=== PATIENT | male | born 2000 | race Caucasian/White ===

== ENCOUNTER 2023-10-30 10:34 | Outpatient (AMB) | payer OTHER, SELFPAY ==
--- NOTE | 2023-10-30 10:54 | MHC.PC.OV ---
Vital Signs 10/30/23 11:01 Height 5 ft 11.5 in Weight 214 lb BMI 29.4 BP 130/82 Blood Pressure Location Rt brachial Position Sitting Respiration 12 Pulse 64 Pulse Source Pulse Oximeter Pulse Oximetry (%) 99 Oxygen Delivery Method Room Air Intake Visit Reasons: est care Intake Note: Patient is here to establish care, patient reports no concerns at this time. 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 Accompanied by: Self / Same As Patient Allergies amoxicillin [AMOXICILLIN] Allergy (Unknown, Verified 10/30/23 11:06) SWELLING, hives penicillin G Allergy (Unknown, Verified 10/30/23 11:06) hives Penicillins [PENICILLINS] Allergy (Unknown, Verified 10/30/23 11:06) SWELLING Medication List - Last Reconciled 10/30/23 by Leora Hutchins MD No Known Home Meds Tobacco use date assessed: 10/30/23 Dental Screening Dental Screen Date: 10/30/23 Did you have a dental visit in the last 12 months?: Yes Did you have a dental problem in the last 6 months where you did not have access to dental care?: No Was dental information given to patient?: Patient has dentist HPI HPI Comments History of Present Illness Details The patient is a 23-year-old female with no significant past medical history presenting to establish care The patient is starting at the [facility]. He denies any history of heart problems, chest pain, shortness of breath. He reports that he has developed a cyst in the gluteal cleft. He says this has not happened to him in the past. He is discomfort when there is pressure against the area. He has been applying warm compresses. He denies any accident. ROS see HPI PHYSICAL EXAM: GENERAL: Alert and oriented x 3. NAD EYES: EOMI. Anicteric. HENT: Moist mucous membranes. No scleral icterus. No cervical lymphadenopathy. LUNGS: Clear to auscultation bilaterally. CARDIOVASCULAR: Regular rate and rhythm. No murmur. No JVD. ABDOMEN: Soft, non-tender +bs EXTREMITIES: No edema. Non-tender. SKIN: Large pilonidal cyst without purulence NEUROLOGIC: No focal neurological deficits. CN II-XII grossly intact PSYCHIATRIC: Cooperative. Appropriate mood and affect [facility] Medical History No pertinent past medical history Surgical History No pertinent past surgical history Family History Mother Pancreatic cancer Maternal Grandmother Pancreatic cancer Maternal Grandfather Pancreatic cancer Social History Household Members: Significant Other Household Members Other:: 2 cats Housing: Apartment Are you a primary field care manager to a significant other at home: No Do you presently have visiting nurse or other home services: No 75 years or older and lives alone: No Alcohol intake: current Alcohol intake frequency: a few times a month Alcohol type: hard liquor Patient Tobacco Use Status: Never used Tobacco e-Cigarette/Vaping Use: Currently Using service: No Current occupational status: employed 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 1. Little interest or pleasure in doing things: nearly every day 2. Feeling down, depressed, or hopeless: several days 3. Trouble falling or staying asleep, or sleeping too much: nearly every day 4. Feeling tired or having little energy: several days 5. Poor appetite or overeating: not at all 6. Feeling bad about yourself - or that you are a failure or have let yourself or your family down: several days 7. Trouble concentrating on things, such as reading the newspaper or watching television: more than half the days 8. Moving or speaking so slowly that other people could have noticed. Or the opposite - being so fidgety or restless that you have been moving around a lot more than usual: more than half the days 9. Thoughts that you would be better off or of hurting yourself in some way: not at all Total score: 13 Depression Screening Interpretation: Positive Depression Screening Follow-up: Existing condition and Declines treatment Depression Screening Done: Yes 79809 - PHQ-9 Billing: Yes Source: Developed by Drs. Tavon Randall, Meena Barrientos, Yahir Doll and colleagues, with an educational guerita from [employer]. Thrive Questionnaire Date Thrive assessed: 10/30/23 I am a: Patient What is your living situation today?: I have a steady place to live Within the past 12 months, did the food you bought not last and you didn't have the money to get more?: Never true Within the past 12 months, did you worry whether your food would run out before you got money to buy more?: Never true Do you have trouble paying for medicines?: No Do you have trouble getting transportation to medical appointments?: No Do you have trouble paying your heating and electricity bill?: No Do you have trouble taking care of your child, family member or friend?: No Do you have trouble with day-to-day activities such as bathing, preparing meals, shopping, managing finances, etc.?: No Are you currently unemployed and looking for a job?: No Are you interested in more education?: No Please select the resources that you would like help with: None Currently or been in a relationship where the following occur: No concerns reported THRIVE Score: 0 AUDIT C Alcohol Use Questionnaire (AUDIT-C) 1. How often do you have a drink containing alcohol?: Monthly or less 2. How many drinks containing alcohol do you have on a typical day when you are drinking?: 1 or 2 3. How often do you have six or more drinks on one occasion?: Never Total Score: 1 ELIOT-7 AMB Questionnaire ELIOT-7 Date ELIOT - 7 assessed: 10/30/23 Feeling nervous, anxious, or on edge: 2 = More than half the days Not being able to stop or control worryin = Not at all Worrying too much about different things: 2 = More than half the days Trouble relaxin = More than half the days Being so restless that it is hard to sit still: 0 = Not at all Becoming easily annoyed or irritable: 2 = More than half the days Feeling afraid as if something awful might happen: 3 = Nearly every day Total ELIOT-7 score (0-4 normal; 5-9 mild; 10-14 moderate; 15-21 severe): 11 Source: Developed by Drs. Tavon Randall, Meena Barrientos, Yahir Doll and colleagues, with an educational guerita from [employer]. ELIOT-7 Assessment Billing ELIOT-7 Assessment Tool: ELIOT-7 Assessment 02686 Physical exam (Primary Care) Vital Signs: Last Vital Signs Pulse 64 10/30/23 11:01 Resp 12 10/30/23 11:01 BP 130/82 10/30/23 11:01 Pulse Ox 99 10/30/23 11:01 Oxygen Delivery Method Room Air 10/30/23 11:01 BMI result Body Mass Index 29.4 Tobacco/Smoking Status: Tobacco use Status Tobacco use date assessed 10/30/23 10/30/23 11:17 Patient Tobacco Use Status Never used Tobacco 10/30/23 11:17 e-Cigarette/Vaping Use Currently Using 10/30/23 11:17 PHQ-9: PHQ-9 Score PHQ-9: Total score 13 10/30/23 11:17 Depression Screening Interpretation: Positive Depression Screening Follow-up: Existing condition and Declines treatment Thrive Assessment: Date of Thrive Assessment Date Thrive assessed 10/30/23 10/30/23 11:17 Currently or been in a relationship where the following occur: No concerns reported Assessment and Plan Assessment & Plan (1) Pilonidal cyst: Code(s): L05. - Pilonidal cyst without abscess Plan: referral to general surgery (2) Encounter to establish care: Code(s): Z76.89 - Persons encountering health services in other specified circumstances Plan: 23-year-old male to establish care. Past Medical, surgical, social and family history reviewed. Orders: Referrals General Surgery Referral L - Pilonidal cyst without abscess Coding Level of Care Code New Pt Level 4 (28497) Diagnoses Pilonidal cyst L. Encounter to establish care Z76.89 Additional Codes ELIOT-7 Assessment Billing - ELIOT-7 Assessment Tool: ELIOT-7 Assessment 54865 ([id number])
[2023-10-30 11:01] VITALS: BP 130/82; PULSE 64; RESP 12; O2SAT 99; BMI 29.4
== END 2023-10-30 11:27 | disposition home or self-care (01) ==
PROVIDERS: PCP Internal Medicine; Visit Provider Internal Medicine
DX: L05.91 Pilonidal cyst without abscess (principal); Z76.89 Persons encountering health services in other specified circumstances
CPT/HCPCS: 99203

== ENCOUNTER 2023-11-02 12:40 | Outpatient (AMB) | payer OTHER, SELFPAY ==
--- NOTE | 2023-11-02 12:50 | MHC.OFFVIS ---
Vital Signs 11/02/23 12:57 Height 5 ft 5.11 in Weight 217 lb BMI 36.0 BP 135/78 Blood Pressure Location Rt brachial Position Sitting Pulse 72 Intake Visit Reasons: Pilonidal cyst Intake Note: Patient referred for pilonidal cyst. X2wks Patient c/o: feels better since it drained. 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 He this is a 2nd episode of a pilonidal abscess which has spontaneously drained. He presents here for further evaluation. He would like to have this excised. Patient presents here with a significant other. Chart was reviewed and patient evaluated. No other significant past medical or surgical history. Patient was never had I&D of this in the past [facility] Medical History No pertinent past medical history Surgical History No pertinent past surgical history Family History Mother Pancreatic cancer Maternal Grandmother Pancreatic cancer Maternal Grandfather Pancreatic cancer Social History (Updated 11/02/23 @ 12:57 by MACY Garcia) Household Members: Significant Other Household Members Other:: 2 cats Housing: Apartment Are you a primary personal care aid to a significant other at home: No Do you presently have visiting nurse or other home services: No 75 years or older and lives alone: No Alcohol intake: current Alcohol intake frequency: a few times a month Alcohol type: hard liquor Patient Tobacco Use Status: Never used Tobacco Tobacco use type: Smokeless Tobacco e-Cigarette/Vaping Use: Currently Using service: No Current occupational status: employed 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 Some mild surrounding erythema. On expression, only serous drainage retrieved. Dressing applied. Assessment & Plan Assessment & Plan (1) Infected pilonidal cyst: Code(s): L05.91 - Pilonidal cyst without abscess Category: Medical Plan Current plan is to give the patient antibiotics and to continue local wound care. He will see me in the proximal weeks time. Once the infective process has resolved, consideration was made for excision of this. All questions answered. Patient will see me as directed or p.r.n. Medications: New ciprofloxacin HCl 500 mg PO BID 14 tabs 0RF Perirectal abscess K61.1 - Rectal abscess Coding Level of Care Code New Pt Level 4 (94910) Diagnoses Infected pilonidal cyst L05.91
[2023-11-02 12:57] VITALS: BP 135/78; PULSE 72; BMI 36.0
== END 2023-11-02 13:19 | disposition home or self-care (01) ==
PROVIDERS: PCP Internal Medicine; Referring Provider Internal Medicine; Visit Provider Surgery
DX: L05.91 Pilonidal cyst without abscess (principal)
CPT/HCPCS: 99204

== ENCOUNTER → 2023-11-02 12:40 | Outpatient (BNVA) | payer OTHER, SELFPAY | PROVIDERS: PCP Internal Medicine; Referring Provider Internal Medicine; Visit Provider Surgery | DX: L05.91 Pilonidal cyst without abscess (principal); L53.9 Erythematous condition, unspecified | CPT/HCPCS: 99202 ==

== ENCOUNTER 2023-11-16 14:22 | Outpatient (AMB) | payer OTHER, SELFPAY ==
--- NOTE | 2023-11-16 14:44 | A.OFFVIS_ITS ---
Intake Visit Reasons: follow up pilonidal cyst Allergies amoxicillin [AMOXICILLIN] Allergy (Unknown, Verified 11/02/23 12:56) SWELLING, hives penicillin G Allergy (Unknown, Verified 11/02/23 12:56) hives Penicillins [PENICILLINS] Allergy (Unknown, Verified 11/02/23 12:56) SWELLING HPI Comments Details: Patient presents for follow-up status post infected pilonidal cyst. He completed his antibiotic course. He has had marked improvement of the symptoms. [facility] Medical History No pertinent past medical history Surgical History No pertinent past surgical history Family History Mother Pancreatic cancer Maternal Grandmother Pancreatic cancer Maternal Grandfather Pancreatic cancer Social History (Updated 11/02/23 @ 12:57 by MACY Garcia) Household Members: Significant Other Household Members Other:: 2 cats Housing: Apartment Are you a primary home care specialist to a significant other at home: No Do you presently have visiting nurse or other home services: No 75 years or older and lives alone: No Alcohol intake: current Alcohol intake frequency: a few times a month Alcohol type: hard liquor Patient Tobacco Use Status: Never used Tobacco Tobacco use type: Smokeless Tobacco e-Cigarette/Vaping Use: Currently Using service: No Current occupational status: employed 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 Assessment & Plan Assessment & Plan (1) Infected pilonidal cyst: Code(s): L05.91 - Pilonidal cyst without abscess Category: Surgical Plan I discussed with the patient therapeutic options which range from conservative therapy and observation to excision. He wishes to off with the former. Should his symptoms progressively worsened during this interim, he will contact me . Patient will otherwise follow-up p.r.n.. All questions answered Coding Level of Care Code Est Pt Level 3 (77768) Diagnoses Infected pilonidal cyst L05
== END 2023-11-16 14:44 | disposition home or self-care (01) ==
PROVIDERS: PCP Internal Medicine; Visit Provider Surgery
DX: L05.91 Pilonidal cyst without abscess (principal)
CPT/HCPCS: 99213

== ENCOUNTER → 2023-11-16 14:22 | Outpatient (BNVA) | payer OTHER, SELFPAY | PROVIDERS: PCP Internal Medicine; Visit Provider Surgery | DX: L05.91 Pilonidal cyst without abscess (principal) | CPT/HCPCS: 99212 ==

== ENCOUNTER 2024-01-22 12:01 | Day surgery (SDC) | payer OTHER, SELFPAY ==
--- NOTE | 2024-01-20 12:53 | HO.ANESPROP2 ---
HPI - Anesthesia Eval Consult details Narrative: 23yo M for Wide Local Excision Pilonidal Cyst of Cleft, PMFSH Active Problems Active Problems: All Active Problems Infected pilonidal cyst (Acute) Encounter to establish care (Acute) Pilonidal cyst (Acute) Tracheobronchitis (Acute) Past Medical History Medical History No pertinent past medical history Family History Family History Mother Pancreatic cancer Maternal Grandmother Pancreatic cancer Maternal Grandfather Pancreatic cancer Surgical History Surgical History No pertinent past surgical history Social History Social History Household Members: Significant Other Household Members Other:: 2 cats Housing: Apartment Are you a primary respiratory care specialist to a significant other at home: No Do you presently have visiting nurse or other home services: No 75 years or older and lives alone: No Alcohol intake: current Alcohol intake frequency: a few times a month Alcohol type: hard liquor Patient Tobacco Use Status: Current everyday Tobacco user Tobacco use type: Smokeless Tobacco e-Cigarette/Vaping Use: Currently Using service: No Current occupational status: employed 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
--- NOTE | 2024-01-21 16:03 | MHC.SHP ---
Pre-Procedural Eval Section A - 24 Hr Update-Section A only Date of Service: 01/22/24 The patient is an INPATIENT: No Changes since office visit: No Cold of Flu in the past 2 weeks, No New Medical Problems, No Changes in Medication and No Patient answered all questions Section B - Complete if H&P > 30 days Chief Complaint: Pilonidal cyst without abscess Allergies: Allergies Allergy/AdvReac Type Severity Reaction Status Date / Time amoxicillin [AMOXICILLIN] Allergy Unknown SWELLING, Verified 11/02/23 12:56 hives penicillin G Allergy Unknown hives Verified 11/02/23 12:56 Penicillins [PENICILLINS] Allergy Unknown SWELLING Verified 11/02/23 12:56 Review of Systems Sugical H&P ROS: Negative: Constitution, Cardiovascular, Respiratory, Neurological, Psychiatric, Hem-Onc, Allergic/Immunologic, Gastrointestinal, Genitourinary, Musculoskeletal, Integumentary, Endocrine and Eyes/Ears/Nose/Throat Exam Surgical H&P Exam: Normal: HEENT, Normal: Heart, Normal: Lungs, Normal: Extremities, Normal: Abdomen, Normal: Skin and Normal: Neurological Plan I have reviewed the history and physical and performed a pertinent physical examination on my patient. No changes have occurred unless specified. Time Spent With Patient Time: Total time managing care of this patient today ____ minutes.
[2024-01-22 13:45] VITALS: BMI 32.9
[2024-01-22 13:47] VITALS: BP 143/93; PULSE 77; RESP 16; TEMP 36.6; O2SAT 100
[2024-01-22] MEDS: Lactated Ringers 1,000 ML 100 ML IVCONT (14:24)
--- NOTE | 2024-01-22 16:28 | HO.ANESPROP2 ---
[facility] Active Problems Active Problems: All Active Problems Infected pilonidal cyst (Acute) Encounter to establish care (Acute) Pilonidal cyst (Acute) Tracheobronchitis (Acute) Past Medical History Medical History No pertinent past medical history Functional capacity: independent ambulation Family History Family History Mother Pancreatic cancer Maternal Grandmother Pancreatic cancer Maternal Grandfather Pancreatic cancer Family history of problems with anesthesia: No Surgical History Surgical History No pertinent past surgical history History of Problems with Anesthesia: No Social History Social History Household Members: Significant Other Household Members Other:: 2 cats Housing: Apartment Are you a primary rn complex care to a significant other at home: No Do you presently have visiting nurse or other home services: No Alcohol intake: current Alcohol intake frequency: a few times a month Alcohol type: hard liquor Patient Tobacco Use Status: Current everyday Tobacco user Tobacco use type: Smokeless Tobacco e-Cigarette/Vaping Use: Currently Using Use of substances other than those prescribed or required for medical reasons: No Are you DNR?: No Advance Directives: No Advance Directives Information Provided: Yes service: No Current occupational status: employed 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[place] Cognitive needs: No Hearing needs: No Vision needs: Yes (wears glasses) Meds Allergies Allergy/AdvReac Type Severity Reaction Status Date / Time amoxicillin [AMOXICILLIN] Allergy Unknown SWELLING, Verified 01/22/24 14:32 hives penicillin G Allergy Unknown hives Verified 01/22/24 14:32 Penicillins [PENICILLINS] Allergy Unknown SWELLING Verified 01/22/24 14:32 Active Medications: Current Medications Lactated Ringer's (Lr) 1,000 mls @ 100 mls/hr IVCONT .Q10H ORTEGA Last Admin: 01/22/24 14:24 Dose: 100 mls/hr Exam Height,Weight and Vital Signs: Height 5 ft 11 in Weight 107.048 kg Last Vital Signs Temp 97.9 F 01/22/24 13:47 Pulse 77 01/22/24 13:47 Resp 16 01/22/24 13:47 BP 143/93 H 01/22/24 13:47 Pulse Ox 100 01/22/24 13:47 O2 Del Method Room Air 01/22/24 13:47 Airway Mallampati Class: II TM Dist: >3cm Neck ROM: Full Heart: RRRR Lungs: CTA Assessment and Plan Assessment Anesthesia Assessment: Anesthesia Plan Discussed, Smoking Cess. Discussed and Chart Reviewed Final Anesthetic Review Family History of Problems with Anesthesia: No History of Problems with Anesthesia: No NPO: Yes ASA Class: II and Emergency Final Preanesthetic Review: Meds/Allgs Chart Reviewed, Consent Obtained/Reviewed and Anes Risks/Benef Reviewed Patient Risk: Low Procedure Risk: Low Anesthetic Plan Anesthetic Plan: GA Disposition: Standard PACU
[2024-01-22 17:05] VITALS: BP 150/79; PULSE 89; RESP 16; TEMP 36.4; O2SAT 100
--- NOTE | 2024-01-22 17:06 | W.PM.OPN ---
Operative Note Operative Note Date of Service: 01/22/24 Narrative: Preoperative diagnosis: [] Recurrent symptomatic pilonidal cyst of cleft Postop diagnosis: [] The same Procedure [] pilonidal cyst excision and jose cleft Surgeon: [] Yaakov Substance Abuse Clinician: [] Type of Anesthesia: [] General Indication for surgery: [] Uneventful pilonidal cyst excision of cleft Findings: [] Patient was brought to the operating room, placed on operative table supine position, after an adequate level of general anesthesia was induced, patient was placed in the prone kasey-knife position. Buttock cheeks were retracted using tape and the jose cleft area was prepped and draped in usual sterile fashion. Using a longitudinal by elliptical incision encompassing the sinus tracts and indurated prior incision and drainage scars, this carried down through skin, subcutaneous tissue, and undermined using Bovie. Specimen sent to pathology. Wound was irrigated, secured hemostasis, and closed in the following manner; subcutaneous tissue to wound base to contralateral subcutaneous tissue interrupted 0 Vicryl sutures were initially placed. Dermal interrupted 2-0 Vicryl sutures were then placed. Next vertical mattress 2-0 Prolene sutures were placed. Dressing and ABD pad applied. Wound was infiltrated at the beginning at the end with 1% lidocaine/0.5% Marcaine. Sponge, needle, and instrument counts reported correct. Patient tolerated procedure well and emerged from anesthesia stable condition. EBL minimal
[2024-01-22 17:10] VITALS: BP 123/87; PULSE 92; RESP 16; O2SAT 99
[2024-01-22 17:15] VITALS: BP 142/96; PULSE 92; RESP 16; O2SAT 100
[2024-01-22 17:20] VITALS: BP 148/84; PULSE 91; RESP 18; TEMP 36.8; O2SAT 100
== END 2024-01-22 17:24 | disposition home or self-care (01) ==
PROVIDERS: PCP Internal Medicine; Visit Provider Surgery
PROC: (CPT 11771; principal; 2024-01-22 17:10)
DX: L05.91 Pilonidal cyst without abscess (principal); Z88.0 Allergy status to penicillin; Z88.1 Allergy status to other antibiotic agents; F17.290 Nicotine dependence, other tobacco product, uncomplicated
CPT/HCPCS: 11771; 88304; J0736; J1100; J1885; J2003; J2250; J2405; J2704; J2795; J3010

== ENCOUNTER → 2024-01-22 12:01 | Outpatient (BNV) | payer OTHER, SELFPAY | PROVIDERS: PCP Internal Medicine; Visit Provider Surgery | DX: L05.91 Pilonidal cyst without abscess (principal) | CPT/HCPCS: 11771 ==

== ENCOUNTER 2024-02-01 14:12 | Outpatient (AMB) | payer OTHER, SELFPAY ==
--- NOTE | 2024-02-01 14:16 | A.OFFVIS_ITS ---
Vital Signs 02/01/24 14:17 Weight 242 lb BP 136/72 Blood Pressure Location Rt brachial Position Sitting Pulse 83 Intake Visit Reasons: s/p pilonidal cyst Intake Note: Patient here s/p excision pilonidal cyst on 01-22-2024. Reports incision healing well. Patient c/o: requesting back to work note. Denies pain, oozing. 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 He is doing quite well. He has minimal incisional discomfort. Presents here for postop check. Pathology is consistent with a pilonidal cyst [facility]PLAC[facility] BY [facility] Medical History No pertinent past medical history Surgical History (Updated 02/01/24 @ 14:24 by Noam Nuno MD) Infected pilonidal cyst (01/22/24) No pertinent past surgical history Family History Mother Pancreatic cancer Maternal Grandmother Pancreatic cancer Maternal Grandfather Pancreatic cancer Social History Household Members: Significant Other Household Members Other:: 2 cats Housing: Apartment Are you a primary day care director to a significant other at home: No Do you presently have visiting nurse or other home services: No 75 years or older and lives alone: No Alcohol intake: current Alcohol intake frequency: a few times a month Alcohol type: hard liquor Patient Tobacco Use Status: Current everyday Tobacco user Tobacco use type: Smokeless Tobacco e-Cigarette/Vaping Use: Currently Using service: No Current occupational status: employed 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 Assessment & Plan Assessment & Plan (1) Postop check: Code(s): Z09 - Encounter for follow-up examination after completed treatment for conditions other than malignant neoplasm Category: Surgical Plan Current plan is to see the patient in 1 week's time for suture removal. He would like to return to work with light duty and it will be provided for this with 3 weeks light duty. Patient will see me as directed or p.r.n.. All questions answered. Coding Level of Care Code Global (96168) Diagnoses Postop check Z09
[2024-02-01 14:17] VITALS: BP 136/72; PULSE 83
== END 2024-02-01 14:22 | disposition home or self-care (01) ==
PROVIDERS: PCP Internal Medicine; Visit Provider Surgery
DX: Z09 Encounter for follow-up examination after completed treatment for conditions other than malignant neoplasm (principal)
CPT/HCPCS: 99024

== ENCOUNTER → 2024-02-01 14:12 | Outpatient (BNVA) | payer OTHER, SELFPAY | PROVIDERS: PCP Internal Medicine; Visit Provider Surgery | DX: Z09 Encounter for follow-up examination after completed treatment for conditions other than malignant neoplasm (principal) | CPT/HCPCS: 99212 ==

== ENCOUNTER 2024-02-08 13:11 | Outpatient (AMB) | payer OTHER, SELFPAY ==
--- NOTE | 2024-02-08 13:11 | A.OFFVIS_ITS ---
Intake Visit Reasons: 1 week suture removal Intake Note: Patient here for suture removal after pilonidal cyst/ jose cleft exc on 01-22-2024. Patient c/o: no concerns. Would like to know when is okay to go swimming. Brokerage Clerk Required: No Accompanied by: Self / Same As Patient Allergies amoxicillin [AMOXICILLIN] Allergy (Unknown, Verified 02/08/24 13:14) SWELLING, hives penicillin G Allergy (Unknown, Verified 02/08/24 13:14) hives Penicillins [PENICILLINS] Allergy (Unknown, Verified 02/08/24 13:14) SWELLING HPI Comments Details: Patient presents for suture removal. He has no new wound issues or complaints. Otherwise doing well. [facility] Medical History No pertinent past medical history Surgical History (Updated 02/08/24 @ 13:22 by Noam Nuno MD) Infected pilonidal cyst (01/22/24) No pertinent past surgical history Family History Mother Pancreatic cancer Maternal Grandmother Pancreatic cancer Maternal Grandfather Pancreatic cancer Social History Household Members: Significant Other Household Members Other:: 2 cats Housing: Apartment Are you a primary director of home care hospice to a significant other at home: No Do you presently have visiting nurse or other home services: No 75 years or older and lives alone: No Alcohol intake: current Alcohol intake frequency: a few times a month Alcohol type: hard liquor Patient Tobacco Use Status: Current everyday Tobacco user Tobacco use type: Smokeless Tobacco e-Cigarette/Vaping Use: Currently Using service: No Current occupational status: employed 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 Sutures uneventfully removed. Dressing applied. Well-tolerated. Assessment & Plan Assessment & Plan (1) Postop check: Code(s): Z09 - Encounter for follow-up examination after completed treatment for conditions other than malignant neoplasm Category: Surgical Plan Patient was been given local instructions including avoiding strenuous activities next few weeks time and then will otherwise follow-up p.r.n.. He is to ease into his activities over the next few weeks time. All questions answered Coding Level of Care Code Global (05983) Diagnoses Postop check Z09
== END 2024-02-08 13:40 | disposition home or self-care (01) ==
PROVIDERS: PCP Internal Medicine; Visit Provider Surgery
DX: Z09 Encounter for follow-up examination after completed treatment for conditions other than malignant neoplasm (principal)
CPT/HCPCS: 99024

== ENCOUNTER → 2024-02-08 13:11 | Outpatient (BNVA) | payer OTHER, SELFPAY | PROVIDERS: PCP Internal Medicine; Visit Provider Surgery | DX: Z48.02 Encounter for removal of sutures (principal); Z87.2 Personal history of diseases of the skin and subcutaneous tissue; Z98.890 Other specified postprocedural states | CPT/HCPCS: 99212 ==

== ENCOUNTER 2024-05-21 23:08 | Emergency (ER) | payer OTHER, SELFPAY ==
[2024-05-21 23:13] VITALS: BP 109/68; PULSE 108; RESP 18; TEMP 36.9; O2SAT 97; BMI 33.9
--- NOTE | 2024-05-21 23:45 | PC.NURSE ---
Pt a&Ox4, no signs of distress. Pt reports 9/10 back pain, denies injury/trauma Plan of care ongoing.
[2024-05-21 23:48] VITALS: BP 137/82; PULSE 110; RESP 20; TEMP 36.5; O2SAT 98
[2024-05-22 00:02] LABS: MANUAL DIFF FLAG NO
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
[2024-05-22 00:05] LABS: Basophils Absolute Auto 0.1 X10*3/uL (0.0-0.2); Basophils Percent Auto 0.6 % (0-2); Eosinophils Percent Auto 0.2 % (0-4); Hemoglobin 17.5 g/dl (14.0-18.0); Imm Gran Abs Auto 0.06 X10*3/uL (0.00-0.03); Imm Gran Pct Auto 0.4 % (0.0-0.4); Lymphocytes Absolute Auto 3.7 X10*3/uL (1.2-4.9); Lymphocytes Percent Auto 26.2 % (20-40); Mean Corpuscular HGB Conc 35.7 g/dl (31.0-36.0); Mean Corpuscular Hemoglobin 29.2 pg (27.0-33.0); Mean Corpuscular Volume 81.7 fL (80.0-98.0); Mean Platelet Volume 9.9 fL (9.4-12.4); Monocytes Absolute Auto 0.7 X10*3/uL (0.1-1.2); Monocytes Percent Auto 4.8 % (2-11); Neutrophils Absolute Auto 9.7 x10*3/uL (2.0-8.3); Neutrophils Percent Auto 67.8 % (45-73); Platelet Count 249 X10*3/uL (160-400); Red Cell Distribution Width 12.8 % (11.0-16.0); White Blood Count 14.3 X10*3/uL (4.8-10.8)
[2024-05-22 00:25] LABS: Alanine Aminotransferase 27 U/L (0-40); Albumin Level 4.7 g/dL (3.5-5.0); Alkaline Phosphatase 61 U/L (39-117); Anion Gap 15 (12-20); Aspartate Amino Transferase 35 U/L (5-37); Bilirubin Total 0.5 mg/dL (0.0-1.0); Blood Urea Nitrogen 11 mg/dL (9-16); Calcium 9.2 mg/dL (8.4-10.2); Carbon Dioxide 24 mmol/L (22-29); Chloride 112 mmol/L (96-108); Creatinine Clr Calc Pharmacy 114.5; Estimated Glomerular Filt Rate > 60; Glucose Random 96 mg/dL (60-115); Lipase 20 U/L (8-78); Potassium 3.9 mmol/L (3.3-5.1); Sodium 147 mmol/L (135-145)
[2024-05-22] MEDS: Ketorolac Tromethamine 15 MG/ML VIAL IM (00:26)
[2024-05-22] MEDS: Acetaminophen 325 MG TABLET 975 MG PO (00:26)
[2024-05-22] MEDS: methocarbamoL 750 MG TABLET PO (00:26)
--- NOTE | 2024-05-22 00:30 | PC.NURSE ---
Pt medicated per [facility] Plan of care ongoing.
[2024-05-22 01:30] VITALS: BP 137/82; PULSE 110; RESP 20; TEMP 36.5; O2SAT 98
== END 2024-05-22 01:30 | disposition home or self-care (01) ==
PROVIDERS: Emergency Provider Emergency Medicine; PCP Internal Medicine
DX: M54.16 Radiculopathy, lumbar region (principal); M54.50 Low back pain, unspecified; F17.200 Nicotine dependence, unspecified, uncomplicated
CPT/HCPCS: 36415; 80053; 83690; 85025; 96372; 99284; J1885

== ENCOUNTER 2024-12-13 08:38 | Outpatient (AMB) | payer OTHER, SELFPAY ==
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
[2024-12-13 08:44] VITALS: BP 120/76; PULSE 89; RESP 14; O2SAT 98
== END 2024-12-13 09:12 | disposition home or self-care (01) ==
LOC: HO.HMCFM 08:38
PROVIDERS: PCP Internal Medicine; Visit Provider Internal Medicine
DX: Z00.00 Encounter for general adult medical examination without abnormal findings (principal); G89.29 Other chronic pain; M54.41 Lumbago with sciatica, right side; M54.42 Lumbago with sciatica, left side; M51.26 Other intervertebral disc displacement, lumbar region

== ENCOUNTER → 2024-12-13 08:38 | Outpatient (BNVA) | payer OTHER, SELFPAY | PROVIDERS: PCP Internal Medicine; Visit Provider Internal Medicine | DX: Z00.00 Encounter for general adult medical examination without abnormal findings (principal); M54.41 Lumbago with sciatica, right side; M54.42 Lumbago with sciatica, left side; G89.29 Other chronic pain; M51.26 Other intervertebral disc displacement, lumbar region | CPT/HCPCS: 96127; 99385 ==

== ENCOUNTER 2025-02-06 10:36 | Outpatient (REF) | payer OTHER, SELFPAY ==
[2025-02-06 14:18] LABS: MANUAL DIFF FLAG NO
[2025-02-06 14:32] LABS: Hematocrit 50.0 % (42.0-52.0); Hemoglobin 16.5 g/dl (14.0-18.0); Imm Gran Abs Auto 0.02 X10*3/uL (0.00-0.03); Imm Gran Pct Auto 0.2 % (0.0-0.4); Lymphocytes Absolute Auto 3.2 X10*3/uL (1.2-4.9); Mean Corpuscular HGB Conc 33.0 g/dl (31.0-36.0); Mean Corpuscular Hemoglobin 28.6 pg (27.0-33.0); Mean Corpuscular Volume 86.8 fL (80.0-98.0); NRBC Abs Auto 0.000 X10*3/uL (0.0-0.012); NRBC Pct Auto 0.0 /100WBC (0.0-0.2); Platelet Count 211 X10*3/uL (160-400); Red Blood Count 5.76 X10*6/uL (4.60-5.80); White Blood Count 8.4 X10*3/uL (4.8-10.8)
[2025-02-06 15:05] LABS: Alanine Aminotransferase 28 U/L (0-40); Albumin Level 4.7 g/dL (3.5-5.0); Alkaline Phosphatase 63 U/L (39-117); Anion Gap 11 (12-20); Aspartate Amino Transferase 34 U/L (5-37); Blood Urea Nitrogen 10 mg/dL (9-16); Calcium 9.2 mg/dL (8.4-10.2); Carbon Dioxide 28 mmol/L (22-29); Chloride 107 mmol/L (96-108); Cholesterol 136 mg/dL (<200); Estimated Glomerular Filt Rate > 60; HDL Cholesterol 51 mg/dL (>40); Potassium 3.8 mmol/L (3.3-5.1); Sodium 142 mmol/L (135-145); Total Protein 7.0 g/dL (6.5-8.0); Triglycerides 57 mg/dL (<150)
== END 2025-02-06 10:37 | disposition home or self-care (01) ==
LOC: HO.WFDLDS 10:36
PROVIDERS: Visit Provider Internal Medicine
DX: M51.26 Other intervertebral disc displacement, lumbar region (principal); M79.602 Pain in left arm; R07.9 Chest pain, unspecified; R35.89 Other polyuria
CPT/HCPCS: 36415; 80053; 80061; 83036; 84443; 85025

== ENCOUNTER 2025-02-26 21:23 | Emergency (ER) | payer OTHER, SELFPAY ==
[2025-02-26 21:29] VITALS: BP 162/70; PULSE 73; RESP 18; TEMP 36.7; O2SAT 99; BMI 29.2
[2025-02-26 22:26] VITALS: BP 148/72; PULSE 76; RESP 20; TEMP 36.6; O2SAT 99
--- NOTE | 2025-02-26 22:55 | ED.GENADULT ---
[facility] - General Adult General Chief complaint: Dental/Oral Stated complaint: TOOTHACHE Time Seen by Provider: 02/26/25 22:38 Source: patient Mode of arrival: ambulatory Limitations: no limitations History of Present Illness ED Provider: Dr. Bal [facility] narrative: 24-year-old male presented hospital today for left lower dental pain. Patient was prescribed clindamycin for dental infection. Has a dentist appointment tomorrow however this pain is excruciating. Unable to go to sleep. Patient stated it is uncomfortable. Related Data Previous Rx's ?Medication ?Instructions ?Recorded oxycodone 5 mg tablet 5 mg PO Q8H PRN pain 4 days #14 02/26/25 tabs Allergies Allergy/AdvReac Type Severity Reaction Status Date / Time amoxicillin (AMOXICILLIN) Allergy Unknown SWELLING, Verified 02/26/25 21:33 hives penicillin G Allergy Unknown hives Verified 02/26/25 21:33 Penicillins (PENICILLINS) Allergy Unknown SWELLING Verified 02/26/25 21:33 Review of Systems Review of Systems: Pertinent review of systems as mentioned in HPI. All other system otherwise negative. [facility] Past Medical History [facility] Narrative: Medical history as mentioned in HPI Medical History No pertinent past medical history Surgical History Infected pilonidal cyst (01/22/24) No pertinent past surgical history Family History Family History Mother Pancreatic cancer Maternal Grandmother Pancreatic cancer Maternal Grandfather Pancreatic cancer Social History Social History Household Members: Significant Other Household Members Other:: 2 cats Housing: Apartment Are you a primary resident caregiver to a significant other at home: No Do you presently have visiting nurse or other home services: No Alcohol intake: current Alcohol intake frequency: does not drink Alcohol type: hard liquor Patient Tobacco Use Status: Current everyday Tobacco user Tobacco use type: Smokeless Tobacco e-Cigarette/Vaping Use: Currently Using Advance Directives: No Advance Directives Information Provided: No Do you have a plan to hurt others: No Plan service: No Current occupational status: employed 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 [place] Current occupational exposures/hazards: No Cognitive needs: No Hearing needs: No Vision needs: Yes (wears glasses) Physical Exam ED Exam Exam: General: Pleasant, no distress, interacting appropriately Head: Normacephalic, atraumatic ENT: The patient has a decayed tooth in the left lower molar Skin: Warm and dry Psychiatric: Appropriate mood and thoughts Vital Signs: Vital Signs - 24 hr 02/26/25 21:29 02/26/25 22:26 Temperature 98.1 F 98 F Pulse Rate 73 76 Respiratory Rate 18 20 Blood Pressure 162/70 H 148/72 H Pulse Oximetry 99 99 Oxygen Delivery Method Room Air Room Air BMI result Body Mass Index 29.2 Procedures Procedure Narrative Procedure Narrative: Inferior alveolar nerve block 2.5 cc bupivacaine and 2.5cc lidocaine was drawn up an injected in the left lower jaw by the inferior alveolar nerve. Anesthesia achieved. Tolerated procedure well. Medical Decision Making Medical Decision Making [facility] Narrative: We will plan to give patient a dose of oxycodone here we will plan to perform a inferior alveolar nerve block on the left side for pain relief. The patient will be discharged on home on a course short course of oxycodone take for pain medication. He does have a dental follow up appointment tomorrow. Differential Diagnosis Differential Diagnoses: The differential diagnosis associated with the presentation includes Dental pain, dental abscess, decayed tooth Lab Data [facility] Lab Attestation statement: I reviewed the patient's lab results. Discharge Plan Discharge Clinical Impression: Pain, dental, Decay, teeth Patient Disposition: Home, Self-Care Instructions: Toothache (ED) Prescriptions: New oxycodone 5 mg tablet 5 mg PO Q8H PRN (Reason: pain) 4 Days Qty: 14 0RF Rx Instructions: Partial Fill upon patient request. Print Language: Mexican
[2025-02-26] MEDS: oxyCODONE HCl Immed Release 5 MG TABLET PO (23:03)
[2025-02-26] MEDS: BUPivacaine MPF 0.25 % 10 ML VIAL 5 ML INFILTRATI (23:03)
[2025-02-26] MEDS: Lidocaine HCl 1 % 20 ML VIAL 5 ML INFILTRATI (23:03)
[2025-02-26 23:13] VITALS: BP 148/72; PULSE 76; RESP 20; TEMP 36.6; O2SAT 99
== END 2025-02-26 23:13 | disposition home or self-care (01) ==
PROVIDERS: Emergency Provider Student in an Organized Health Care Education/Training Program
DX: K02.9 Dental caries, unspecified (principal); K08.89 Other specified disorders of teeth and supporting structures; F17.200 Nicotine dependence, unspecified, uncomplicated
CPT/HCPCS: 64400; 99283; 99284; J0665; J2003